=== PATIENT | female | born 2005 | race Caucasian/White ===

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

== ENCOUNTER → 2024-12-15 09:52 | Outpatient (BNVA) | payer BC, MEDICAID, SELFPAY | PROVIDERS: PCP Family Medicine; Visit Provider Nurse Practitioner Women's Health | DX: N91.2 Amenorrhea, unspecified (principal) | CPT/HCPCS: 81025 ==

== ENCOUNTER → 2024-12-20 10:27 | Outpatient (BNVA) | payer BC, MEDICAID, SELFPAY | PROVIDERS: PCP Family Medicine; Visit Provider Nurse Practitioner Women's Health | DX: N91.2 Amenorrhea, unspecified (principal) | CPT/HCPCS: 76801 ==

== ENCOUNTER → 2025-01-04 08:13 | Outpatient (BNVA) | payer BC, MEDICAID, SELFPAY | PROVIDERS: PCP Family Medicine; Visit Provider Nurse Practitioner Women's Health | DX: Z34.91 Encounter for supervision of normal pregnancy, unspecified, first trimester (principal) | CPT/HCPCS: 80307; 84315; 85025; 86592; 86762; 86803; 86850; 86900; 87086; 87340; 87806 ==

== ENCOUNTER → 2025-01-22 13:18 | Outpatient (BNVA) | payer MEDICAID, SELFPAY | PROVIDERS: PCP Family Medicine; Visit Provider Obstetrics & Gynecology | DX: Z34.80 Encounter for supervision of other normal pregnancy, unspecified trimester (principal); Z34.90 Encounter for supervision of normal pregnancy, unspecified, unspecified trimester | CPT/HCPCS: 84315; 87491; 87591; 87624; 87661 ==

== ENCOUNTER → 2025-02-15 08:47 | Outpatient (BNVA) | payer BC, MEDICAID, SELFPAY | PROVIDERS: PCP Family Medicine; Visit Provider Nurse Practitioner Women's Health | DX: Z34.80 Encounter for supervision of other normal pregnancy, unspecified trimester (principal); O28.5 Abnormal chromosomal and genetic finding on antenatal screening of mother | CPT/HCPCS: 82105; 84315 ==

== ENCOUNTER → 2025-03-19 08:35 | Outpatient (BNVA) | payer BC, MEDICAID, SELFPAY | PROVIDERS: PCP Family Medicine; Visit Provider Nurse Practitioner Women's Health | DX: O28.5 Abnormal chromosomal and genetic finding on antenatal screening of mother (principal) | CPT/HCPCS: 84315 ==

== ENCOUNTER → 2025-04-11 12:56 | Outpatient (BNVA) | payer BC, MEDICAID, SELFPAY | PROVIDERS: PCP Family Medicine; Visit Provider Nurse Practitioner Women's Health | DX: Z34.80 Encounter for supervision of other normal pregnancy, unspecified trimester (principal) | CPT/HCPCS: 82950; 84315 ==

== ENCOUNTER → 2025-05-11 13:51 | Outpatient (BNVA) | payer BC, MEDICAID, SELFPAY | PROVIDERS: PCP Family Medicine; Visit Provider Nurse Practitioner Women's Health | DX: O28.5 Abnormal chromosomal and genetic finding on antenatal screening of mother (principal); O16.3 Unspecified maternal hypertension, third trimester | CPT/HCPCS: 84315; 85025 ==

== ENCOUNTER → 2025-05-25 14:08 | Outpatient (BNVA) | payer BC, MEDICAID, SELFPAY | PROVIDERS: PCP Family Medicine; Visit Provider Nurse Practitioner Women's Health | DX: Z34.80 Encounter for supervision of other normal pregnancy, unspecified trimester (principal) | CPT/HCPCS: 84315 ==

== ENCOUNTER → 2025-06-08 13:02 | Outpatient (BNVA) | payer BC, MEDICAID, SELFPAY | PROVIDERS: PCP Family Medicine; Visit Provider Nurse Practitioner Women's Health | DX: O16.3 Unspecified maternal hypertension, third trimester (principal) | CPT/HCPCS: 84315 ==

== ENCOUNTER → 2025-06-22 13:02 | Outpatient (BNVA) | payer BC, MEDICAID, SELFPAY | PROVIDERS: PCP Family Medicine; Visit Provider Obstetrics & Gynecology | DX: Z34.80 Encounter for supervision of other normal pregnancy, unspecified trimester (principal) | CPT/HCPCS: 84315 ==

== ENCOUNTER 2025-06-30 20:54 | Outpatient (CLI) | payer BC, MEDICAID, SELFPAY ==
[2025-06-30 21:04] VITALS: BP 131/74; PULSE 88
[2025-06-30 21:23] VITALS: BP 122/73; PULSE 86
[2025-06-30 21:38] VITALS: BP 120/72; PULSE 81
[2025-06-30 21:39] VITALS: RESP 18
[2025-06-30 21:45] VITALS: BP 120/72; PULSE 86; O2SAT 98
== END 2025-06-30 22:00 | disposition home or self-care (01) ==
LOC: OPOB 20:56 → OBGYN 20:56
PROVIDERS: PCP Family Medicine; Visit Provider Obstetrics & Gynecology
DX: O13.9 Gestational [pregnancy-induced] hypertension without significant proteinuria, unspecified trimester (principal); Z3A.00 Weeks of gestation of pregnancy not specified
CPT/HCPCS: 59025; 99211

== ENCOUNTER → 2025-07-06 13:43 | Outpatient (BNVA) | payer BC, MEDICAID, SELFPAY | PROVIDERS: PCP Family Medicine; Visit Provider Obstetrics & Gynecology | DX: Z34.03 Encounter for supervision of normal first pregnancy, third trimester (principal) | CPT/HCPCS: 84315; 87081 ==

== ENCOUNTER → 2025-07-13 08:19 | Outpatient (BNVA) | payer BC, MEDICAID, SELFPAY | PROVIDERS: PCP Family Medicine; Visit Provider Nurse Practitioner Women's Health | DX: Z3A.37 37 weeks gestation of pregnancy (principal) | CPT/HCPCS: 84315 ==

== ENCOUNTER → 2025-07-19 08:50 | Outpatient (BNVA) | payer BC, MEDICAID, SELFPAY | PROVIDERS: PCP Family Medicine; Visit Provider Nurse Practitioner Women's Health | DX: Z34.80 Encounter for supervision of other normal pregnancy, unspecified trimester (principal) | CPT/HCPCS: 84315 ==

== ENCOUNTER → 2025-07-27 11:01 | Outpatient (BNVA) | payer BC, MEDICAID, SELFPAY | PROVIDERS: PCP Family Medicine; Visit Provider Obstetrics & Gynecology | DX: Z34.03 Encounter for supervision of normal first pregnancy, third trimester (principal) | CPT/HCPCS: 84315 ==

== ENCOUNTER → 2025-08-02 08:10 | Outpatient (BNVA) | payer BC, MEDICAID, SELFPAY | PROVIDERS: PCP Family Medicine; Visit Provider Obstetrics & Gynecology | DX: Z34.80 Encounter for supervision of other normal pregnancy, unspecified trimester (principal) | CPT/HCPCS: 84315 ==

== ENCOUNTER 2025-08-04 18:59 | Inpatient (IN) | payer BC, MEDICAID, SELFPAY ==
--- OUTSIDE RECORDS SUMMARY | 2019-12-26 09:41 | XMS_ITS | Continuity of Care Document ---
Author Organization [facility] Address [address] [address] Phone Care Team Providers Care Ag Service Manager Name Role Phone Monica Lucas DO Unavailable [...] on Encounter [facility], [address], [place], [id number], tel:[phone] [facility] No Information Tatimier Ruth Annma. [address], [place], [id number], [place]. tel:[phone] [facility], [address], [place], [id number], tel:[phone] [facility] HR Tremor, unspecified Ciesemier Gemma. [address], [place], [id number], . tel:[phone] Referring Provider: Monica Lucas, [address] [place], [address] . tel:[phone] OFFICE/OUTPAT IENT VISIT, NEW [facility], [address], [place], [place], [id number], tel:[phone] [facility] Establish Care (chief complaint)C omplaints of Tremors (chief complaint)C omplaints of Anxiety (chief complaint) Tremor Shayy Anderson. [address], [place], [address], [place]. tel:[phone] Referring Provider: Monica Lucas, [address] [place], [address] . tel:[phone] Family History Family Member Type Diagnosis Age At Onset No Information Payers Payer name Insurance type Covered alliance party ID Quin obrien(s) [facility] [id number] Social History Type Description Quantity Date Captured [...] their last blood work was completed in [facility] for several years. Patient states urinary and GI systems are working with no complaints. Patient is not due for age related diagnostic testing, such as a mammogram/colonoscopy. Pt complains of right hand tremors that started about 4 years ago but has gotten worse over the years. Pt states that she lives in [place] and does have some anxiety. Pt states [...]
[2025-08-04] VITALS (7 sets, daily range): BP systolic 113–147; BP diastolic 75–89; PULSE 86–112; BMI 37.4
[2025-08-04 19:58] LABS: Hematocrit 34.2 % (36-47); Hemoglobin 10.80 g/dL (11.27-16.99); Mean Corpuscular HGB Conc 31.6 g/dL (30-55); Mean Corpuscular Hemoglobin 26.2 pg (27-33); Mean Corpuscular Volume 83.0 fl (85-98); Nucleated Red Blood Cells % 0 %; Platelet Count 377 10^3/cmm (157-399); Red Blood Count 4.12 10^6/uL (3.85-5.65); White Blood Count 15.74 10^3/uL (3.29-11.43)
--- NOTE | 2025-08-04 20:30 | PM.OBGYHP ---
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 Illness Vanessa Arce is a 20 year old female A1 EDC August 01, 2025 At 40 w 3 d No complications No c/o + active movements Admitted for induction of labor Present Details : 2 Para: 0 Labs Rubella: Immune RPR: Negative GBS: Negative Medications/Allergies Home Medications ?Medication ?Instructions ?Recorded ?Confirmed ?Last Taken ?Type docosahexaenoic acid 200 mg 200 mg PO DAILY 12/15/24 08/02/25 Unknown History capsule ( DHA) Allergies Allergy/AdvReac Type Severity Reaction Status Date / Time No Known Allergies Allergy Verified 08/02/25 07:42 PFS 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 PFSH: Medical History (Updated 08/02/25 @ 11:27 by Steve Gallardo MD) No pertinent past medical history neghx:htn,dm,thyroid,dvt/pe PCP: Tammie Payne [place] Surgical History History of tonsillectomy (~2008) Hx laparoscopic cholecystectomy (~10/2020) Family History Mother Hyperlipidemia Thyroid disease Diabetes mellitus type 1 Grandmother Hyperlipidemia Hypertension Thyroid disease Grandfather Hypertension Father Hypertension Other Diabetes Denies family history of Colon cancer Ovarian cancer Prostate cancer Heart disease Breast cancer Anesthesia complication Bleeding disorder Uterine cancer Stroke Social History Smoking and tobacco/nicotine status: former use of tobacco/nicotine History History History 2 Term 0 0 Miscarriages/Ectopic 1 Living Children 0 Care VALARIE Calculator Estimated Delivery Date Method Current WG Current Estimate 08/01/25 Ultrasound #1 40w 5d Other Estimates 07/20/25 LMP (Certain) 42w 3d Specific Issues/Plans abnormal NIPT--- referred to [facility] Insufficient cervical cells on Pap smear with negative HPV--- needs Pap Vitals/I&O/Wt Last Vital Signs Temp 98.4 F 08/06/25 02:12 Pulse 93 08/06/25 03:59 Resp 16 08/06/25 02:12 BP 116/57 08/06/25 03:59 Pulse Ox 99 08/05/25 15:40 O2 Del Method Non-Rebreather 08/05/25 23:39 O2 Flow Rate 0 08/06/25 00:16 08/05/25 08/05/25 08/06/25 14:59 22:59 06:59 Intake Total 21.40 / 21.40 1045.934 / 1067.334 975.266 / 2042.600 Output Total 1000 / 1000 Balance 21.40 / 21.40 45.934 / 67.334 975.266 / 1042.600 Weight last 48 hrs Weight 232 lb Physical Exam Narrative: Weight 231 lbs, 5?6? VS normal General comfortable, awake, alert Lungs: clear Cor: RRR Abd: NT FH 38 cm, cephalic Cervix: closed / long / high / posterior Ext normal External monitor: heart tracing good variability, + accelerations Urinary Catheter Management: Villatoro: Cath Placed During This Visit: yes Urinary Catheter Date of Insertion: 08/05/25 Urinary Catheter Time of Insertion: 16:00 Data 08/04/25 19:33 Results Labs OB ([facility]): Blood Type O Positive 08/04/25 Antibody Screen Negative 08/04/25 Hct, (36-47) 34.2 % L 08/04/25 Hgb, (11.27-16.99) 10.80 g/dL L 08/04/25 Rho(D) Type Rh positive 08/04/25 Plt Count, (157-399) 377 10^3/cmm 08/04/25 Hep Bs Antigen, (Nonreactive) Non-reactive 01/04/25 Hepatitis C Antibody, (Nonreactive) Non-reactive 01/04/25 Rubella IgG Antibody, (0.0-10.0) 206.2 IU/mL H 01/04/25 RPR, (Nonreactive) Nonreactive 01/04/25 HIV 1&2 Ab & HIV 1 Ag, (Non-Reactiv) Non-reactive 01/04/25 Glucose 1 Hr 50 gm, (85-140) 129 mg/dL 04/11/25 HCG, Qual, (Negative) Positive H 12/15/24 Urine Opiates Screen, (Negative) Negative ng/mL 01/04/25 Ur Barbiturates Screen, (Negative) Negative ng/mL 01/04/25 Ur Phencyclidine Scrn, (Negative) Negative ng/mL 01/04/25 Ur Amphetamines Screen, (Negative) Negative ng/mL 01/04/25 U Benzodiazepines Scrn, (Negative) Negative ng/mL 01/04/25 Urine Cocaine Screen, (Negative) Negative ng/mL 01/04/25 U Marijuana (THC) Screen, (Negative) Negative ng/mL 01/04/25 Micro Urine Specimen 01/04/25 Pap Smear Interpret See note 01/22/25 A&P Assessment and plan 1. Supervision of other normal : 40 w 3 d Admitted for induction of labor Fetus reassuring Plan labor management PDMP PDMP Reviewed: Not Reviewed Attestations Medical Necessity Statement*: patient at 40 w 3 d, admitted for induction of labor Coding Level of Care Code Acute Code for Chg Fwd Diagnoses Supervision of other normal Z34.80
[2025-08-05] VITALS (73 sets, daily range): BP systolic 82–135; BP diastolic 50–83; PULSE 80–134; RESP 16–18; TEMP 36.3–37.2; O2SAT 98–100
--- NOTE | 2025-08-05 00:45 | P.PN_ITS ---
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: Interval history: fetus reassuring patient received cytotec 25 ug intravaginal x one cervix: 2 cm / 50 / -3 having regular UCs on external monitor Labor: Station: -2 Amniotic Membrane Status: Intact Monitor Mode: Internal (IUPC) Contraction Pattern: Regular Uterine Tone Measurement: 5 Vitals/I&O/Wt Last Vital Signs Temp 98.4 F 08/06/25 02:12 Pulse 96 08/06/25 04:15 Resp 16 08/06/25 02:12 BP 111/56 08/06/25 04:15 Pulse Ox 99 08/05/25 15:40 O2 Del Method Non-Rebreather 08/05/25 23:39 O2 Flow Rate 0 08/06/25 00:16 08/05/25 08/05/25 08/06/25 14:59 22:59 06:59 Intake Total 21.40 / 21.40 1045.934 / 1067.334 975.266 / 2042.600 Output Total 1000 / 1000 Balance 21.40 / 21.40 45.934 / 67.334 975.266 / 1042.600 Weight last 48 hrs Weight 232 lb Physical Exam 2 Urinary Catheter Management: Villatoro: Cath Placed During This Visit: yes Urinary Catheter Date of Insertion: 08/05/25 Urinary Catheter Time of Insertion: 16:00 Data 08/04/25 19:33 A&P Assessment and plan 1. Supervision of other normal : PDMP PDMP Reviewed: Not Reviewed Attestations 2 Medical Necessity Statement*: patient at 40 w 3 d, admitted for induction of labor Coding Level of Care Code Acute Code for Chg Fwd Diagnoses Supervision of other normal Z34.80
[2025-08-05] MEDS: oxytocin 30 UNIT/500 ML BAG IV (09:31)
[2025-08-05] MEDS: fentaNYL 50 mcg/mL INJ 2mL IVP ×3 (09:37→14:36)
--- NOTE | 2025-08-05 12:10 | ANES.PREANE2 ---
Pre-Anesthetic Assessment Height/Weight: Height 1.68 m Weight 105.233 kg Pulse Resp BP O2 Del Method 84 18 118/60 Room Air 08/05/25 04:22 08/05/25 09:37 08/05/25 04:22 08/04/25 19:52 Epidural Familial anesthetic complications: None Was Beta Adryan taken within 24 hours: N/A Was Clonidine taken within 24 hours: N/A Last intake: 08/05 breakfast Social No alcohol and No tobacco Exam alert, oriented x 3, clear to auscultation bilaterally and regular rate & rhythm Airway Submandibular: within normal limits Cervical ROM: within normal limits Mallampati: Class III Dentition: chipped (and missing) and full History/ROS No significant history except as noted and No significant complaints Pulmonary None reported CV/HEM Hypertension (Gestational) None reported Hepatic None reported GI Gastroesophageal Reflux Disease (Gestational) Metabolic None reported Musc/skel None reported Neuropsych None reported Anesthetic Plan ASA status: 2 Anesthesia: Anesthesia Evaluation, General and Regional (specify below) (Epidural) Risk of > 500 ml blood loss (7ml/kg in children): Yes, adequate IV access and fluids planned Medications/Allergies Home Medications ?Medication ?Instructions ?Recorded ?Confirmed ?Last Taken ?Type docosahexaenoic acid 200 mg 200 mg PO DAILY 12/15/24 08/02/25 Unknown History capsule ( DHA) Allergies Allergy/AdvReac Type Severity Reaction Status Date / Time No Known Allergies Allergy Verified 08/02/25 07:42 Current Medications Generic Name Dose Route Start Last Admin Trade Name Freq PRN Reason Stop Dose Admin Fentanyl 25 - 100 mcg 08/05/25 09:33 08/05/25 09:37 Fentanyl 50 Mcg/Ml Inj 2ml IVP 25 mcg Q1H PRN Administration SEVERE PAIN Dextrose/Lactated Ringer's 1,000 mls @ 125 mls/hr 08/04/25 20:00 08/05/25 09:08 Dextrose 5%-Lactated Ringers IV 125 mls/hr .Q8H RUSSELL Administration Oxytocin 30 unit in 500 mls @ 1 mls/hr 08/05/25 07:30 08/05/25 10:10 Pitocin IV 2 milliunit/min .Q24H RUSSELL 2 mls/hr Protocol Titration 1 MILLIUNIT/MIN Misoprostol 25 mcg 08/04/25 20:06 08/04/25 20:43 Misoprostol 100 Mcg Tablet VAGINAL 25 mcg Q4H PRN Administration LABOR INDUCTION PFSH Anesthesia Medical History (Updated 08/02/25 @ 11:27 by Steve Gallardo MD) No pertinent past medical history neghx:htn,dm,thyroid,dvt/pe PCP: Tammie Payne [place] Surgical History History of tonsillectomy (~2008) Hx laparoscopic cholecystectomy (~10/2020) Family History Mother Hyperlipidemia Thyroid disease Diabetes mellitus type 1 Grandmother Hyperlipidemia Hypertension Thyroid disease Grandfather Hypertension Father Hypertension Other Diabetes Denies family history of Colon cancer Ovarian cancer Prostate cancer Heart disease Breast cancer Anesthesia complication Bleeding disorder Uterine cancer Stroke Social History Smoking and tobacco/nicotine status: former use of tobacco/nicotine Female Reproductive History : 2 Data Anesthesia 08/04/25 19:33 Short CBC 08/04/25 Range/Units 19:33 WBC 15.74 H (3.29-11.43) 10^3/uL Hgb 10.80 L (11.27-16.99) g/dL Hct 34.2 L (36-47) % MCV 83.0 L (85-98) fl Plt Count 377 (157-399) 10^3/cmm Neut % (Auto) 77.3 % Neut # (Auto) 12.16 H (1.8-7.7) 10^3/uL Blood Bank 08/04/25 19:33 Blood Type O Positive Rho(D) Type Rh positive Antibody Screen Negative
--- NOTE | 2025-08-05 15:29 | P.ANES_ITS ---
Anesthesia Procedures Procedure/Date: 08/05/25 Epidural: Time Out Performed: Yes Consents Signed: Procedure Consent and NPO Consent Consent: requested by attending/covering physician, from patient, risks and benefits reviewed and patient agrees to proceed Lumbar Level: L3-L4 Epidural position: sitting Epidural procedure: sterile prep of area (betadine), 1% lidocaine to numb the area (3 mLs), neg for paresthesia, test dose given, 1.5% xylocaine 1:200k epi (3 mLs/ 2 mLs), placed PCEA, no systemic response, sterile dressing applied, L.U.D. no apparent complications and 0.2% Ropiavacaine @ mls/hr (13) Additional Comments: YAHIR 6cm, catheter threaded to 12cm. Negative aspiration for blood and CSF. P atient educated on ACCOUNT SERVICES REPRESENTATIVE button. Patient tolerated well.
--- NOTE | 2025-08-05 18:45 | PM.OBGYPN ---
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: Interval history: Cervix: 4 / 75 / -2 AROM, 2+ meconium IUPC placed Labor: Station: -2 Amniotic Membrane Status: Intact Monitor Mode: Internal (IUPC) Contraction Pattern: Regular Uterine Tone Measurement: 5 Vitals/I&O/Wt Last Vital Signs Temp 98.4 F 08/06/25 02:12 Pulse 96 08/06/25 04:15 Resp 16 08/06/25 02:12 BP 111/56 08/06/25 04:15 Pulse Ox 99 08/05/25 15:40 O2 Del Method Non-Rebreather 08/05/25 23:39 O2 Flow Rate 0 08/06/25 00:16 08/05/25 08/05/25 08/06/25 14:59 22:59 06:59 Intake Total 21.40 / 21.40 1045.934 / 1067.334 975.266 / 2042.600 Output Total 1000 / 1000 Balance 21.40 / 21.40 45.934 / 67.334 975.266 / 1042.600 Weight last 48 hrs Weight 232 lb Physical Exam Urinary Catheter Management: Villatoro: Cath Placed During This Visit: yes Urinary Catheter Date of Insertion: 08/05/25 Urinary Catheter Time of Insertion: 16:00 Data 08/04/25 19:33 A&P Assessment and plan 1. Supervision of other normal : PDMP PDMP Reviewed: Not Reviewed Attestations Medical Necessity Statement*: patient at 40 w 3 d, admitted for induction of labor Coding Level of Care Code Acute Code for Chg Fwd Diagnoses Supervision of other normal Z34.80
[2025-08-05] MEDS: ROPivacaine premix 200 MG/100 ML PREMIX 10 MG EPIDURAL (22:09)
[2025-08-06] VITALS (153 sets, daily range): BP systolic 92–158; BP diastolic 48–94; PULSE 86–129; RESP 16–18; TEMP 36.7–37.1; O2SAT 93–99
[2025-08-06] MEDS: ROPivacaine premix 200 MG/100 ML PREMIX 10 MG EPIDURAL ×2 (05:03→12:09)
--- OUTSIDE RECORDS SUMMARY | 2025-08-06 05:06 | XMS_ITS | Clinical Summary ---
Author Organization [facility] Address [address] [place] [phone] Phone Care Team Providers Care Agricultural Systems Specialist Name Role Phone Unavailable Primary Care Provider Unavailabl e Social History Tobacco Use Types Packs/Day Years Used Date Smoking Tobacco: Never Assessed Comments Unknown Sex and Gender Information Value Date Recorded Sex Assigned at Not on file Legal Sex Female 12:51 PM CDT Gender Identity Not on file Sexual Orientation Not on file Plan of Treatment Health Maintenance Due Date Last Done Comments MMR Vaccines (1 of 1 - Stand ronal series) 01/31/2004 DTaP,Tdap,and Td Vaccines (1 - Tdap) 2010 Varicella Vaccines (1 of 2 - 13+ 2-dose series) 01/31/2016 HPV Vaccines (1 - 3-dose series) 2018 Meningococcal B Vaccine (1 o f 2 - Standard) 2019 Depression Screening 2021 Social Drivers of Health (SDoH) 2021 Hepatitis B Vaccines (1 of 3 - 19+ 3-dose series) 2022 Pap Smear 01/31/2024 COVID-19 Vaccine (1 - 2023-2 5 season) 2025 Influenza Vaccine (#1) 2025 Pneumococcal Vaccine: 50+ Ye ars (1 of 1 - PCV) 2053 Zoster Vaccines (1 of 2) 2053 RSV Vaccines (1 - 1-dose 75+ series) 2078 HIB Vaccines Aged Out No longer eligi ble based on patient's age to complete this topic Hepatitis A Vaccines Aged Out No long er eligible based on patient's age to complete this topic IPV Vaccines Aged Out No longer eligi ble based on patient's age to complete this topic Meningococcal Vaccine Aged Out No tony myke eligible based on patient's age to complete this topic Pneumococcal Vaccine Aged Out No long er eligible based on patient's age to complete this topic Rotavirus Vaccines Aged Out No longer eligible based on patient's age to complete this topic
--- OUTSIDE RECORDS SUMMARY | 2025-08-06 05:07 | XMS_ITS | Encounter Summary ---
Author Organization [facility] Address [address] [place] [phone] Phone Care Team Providers Care Costume Designer Name Role Phone Unavailable Primary Care Provider Unavailabl e Reason for Visit * Reason Onset Date Comments new mom 06/18/2022 Encounter Details Date Type Department Care Team (Late st Contact Info) Description 06/18/2022 Telephone [facility] [address] [address] Matthew Azul MD [address] [place] [address] new mom Social History Tobacco Use Types Packs/Day Years Used Date Smoking Tobacco: Never Assessed Comments Unknown Sex and Gender Information Value Date Recorded Sex Assigned at Not on file Legal Sex Female 12:51 PM CDT Gender Identity Not on file Sexual Orientation Not on file documented as of this encounter Miscellaneous Notes * Telephone Encounter - Roula Albert MA - 06/19/2022 2:27 PM CDT Scheduled for a nurse visit on 07/09 * Telephone Encounter - Roula Albert MA - 06/19/2022 2:23 PM CDT LMP: 05/20/22 #P: P: 1 CONFIRMED: Yes, Home Test PREVIOUS OR LABOR COMPLICATIONS: None PREVIOUS : No SEEN OTHER OB: No (Need records before scheduling if seen somewhere else for provider approval) EVER SEEN PH NUTRITION THERAPIST: No Provider preference ? [facility] location ? [place] DELIVER AT PH: Yes INS: [employer] Medicaid (Make sure they are aware we do not accept homestate. If patient has homestate insurance, call to switch plan for and schedule appointment after new plan information is received.) (If no insurance, patient can call to fill out medicaid application form. Or we can send telephone encounter to Stella Lei for assistance.) SURROGACY: No ADOPTION: No Arrive 15 min prior to appointment , bring insurance card, drivers license and be prepared to leavea urine ! * Telephone Encounter - Shay Leger - 06/18/2022 1:01 PM CDT LMP: 05/20/22 1st [employer] Siri Requet * Telephone Encounter - Shay Leger - 06/18/2022 12:59 PM CDT LM for patient to call back the office * Telephone Encounter - Patricia Michael - 06/18/2022 12:51 PM CDT New mom, last period May 20, this will be first child documented in this encounter Plan of Treatment Not on file documented as of this encounter Visit Diagnoses Not on filedocumented in this encounter
[2025-08-06] MEDS: penicillin g potassium 5,000,000 UNIT in sodium chloride 0.9% (plus) 100 ML 100 UNIT IV (09:56)
--- NOTE | 2025-08-06 13:05 | PM.OBGYPN ---
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 Subjective: Interval history: heart tracing on FSE Decreased variability + late decelerations UCs inadequate Pitocin was turned off due to concerning heart tracing Cervix: 6 cm / -2 Will proceed with for delivery Procedure and risks explained to patient Risks include, but not limited to, infection, bleeding, injury to internal organs, anesthesia, blood transfusions Patient understands and wants to proceed Labor: Station: -2 Amniotic Membrane Status: Intact Monitor Mode: Internal (IUPC) Contraction Pattern: Irregular Uterine Tone Measurement: 0 Vitals/I&O/Wt Last Vital Signs Temp 98.1 F 08/06/25 19:26 Pulse 99 08/06/25 22:41 Resp 16 08/06/25 15:55 BP 137/84 08/06/25 21:58 Pulse Ox 96 08/06/25 22:41 O2 Del Method Room Air 08/06/25 15:55 O2 Flow Rate 0 08/06/25 00:16 08/06/25 08/06/25 08/07/25 14:59 22:59 06:59 Intake Total 153.817 / 153.817 800 / 953.817 Output Total 3650 / 3650 Balance 153.817 / 153.817 -2850 / -2696.183 Physical Exam Urinary Catheter Management: Villatoro: Cath Placed During This Visit: yes Reason for Continuing Indwelling Catheter: Required Immobilization for Trauma or Surgery or Anesthesia Urinary Catheter Date of Insertion: 08/05/25 Urinary Catheter Time of Insertion: 16:00 Data 08/04/25 19:33 A&P Assessment and plan 1. Supervision of other normal : PDMP PDMP Reviewed: Not Reviewed Attestations Medical Necessity Statement*: patient at 40 w 3 d, admitted for induction of labor Coding Level of Care Code Acute Code for Chg Fwd Diagnoses Supervision of other normal Z34.80
[2025-08-06] MEDS: ceFAZolin 2,000 mg SDV 2000 MG IVP (14:10)
[2025-08-06] MEDS: metoclopramide 5 mg/mL SDV 2 mL 10 MG IVP (14:11)
--- NOTE | 2025-08-06 14:50 | PM.OP ---
Operative Report Date of procedure: August 06, 2025 Pre-op diagnosis: 40 w 3 d induction of labor 2+ meconium stained amniotic fluid cervix at 6 cm heart tracing with decreased variability and repetitive late decelerations Post-op diagnosis: same Post-op findings: normal uterus, tubes, and ovaries fetus with body cord Procedure done: primary low-transverse Implants: none Specimens removed/disposition: placenta and cord, discarded cord gases and blood, sent to lab Surgeon: iMlad Raphael MD Anesthesia: Epidural Estimated blood loss (mL): 500 Complications: none Findings: see above Condition: stable Disposition: floor Brief History: 20 y.o. at 40 w 5 d admitted for induction of labor Cx at 6 cm heart tracing with decreased variability and repetitive late decelerations Procedure: The patient was taken to the operating room and placed supine in the left lateral tilt position. Epidural anesthesia and a tejeda catheter were already in place. Time-out verification was carried out. The abdomen was prepped and draped in the usual sterile fashion. A Pfannenstiel incision was made and carried down through skin and subcutaneous tissue and fascia. The fascial incision was extended laterally with Parsons scissors. The fascia was from the underlying rectus muscles. The rectus muscles were split in the midline. The peritoneum was entered bluntly avoiding underlying organs. A bladder flap was created. An Thom-O retractor was placed. A low-transverse uterine incision was made and extended laterally and bluntly avoiding the uterine vessels. The baby was delivered in cephalic presentation atraumatically. A tight body cord was noted. The baby was suctioned, the cord was clamped and cut and the baby was handed to pediatric staff. A segment of cord was obtained for cord gas, cord blood was obtained. The placenta was manually removed intact. The uterine cavity was bluntly curetted with wet laps. The uterine incision was then closed with a continuous interlocking stitch of O-chromic. Adequate hemostasis was seen. Inspection of the uterine incision again showed good hemostasis. The fascia was then closed with a continuous stitch of O-Vicryl. The subcutaneous tissue was irrigated and inspected for hemostasis. The skin was then closed with Insorb abhijeet. Postoperative condition: stable EBL: 500 cc Complications: none Sponge and instruments counts correct x two
[2025-08-06] MEDS: HYDROcodone-acetaminophen 5-325 mg Tablet PO ×2 (16:09→22:06)
[2025-08-06] MEDS: ferrous sulfate EC 325 mg Tablet PO (20:18)
--- NOTE | 2025-08-06 23:13 | PC.NURSE ---
At 2107 the patient reported to Angi Boyer Rn that her left leg was bothering her, Rn assessed and did not note any abnormalities. At 2201 the patient reported to Angi Boyer Rn that her left leg had began to hurt and was now at a pain of 8/10. Patient was able to barely move leg off the bed and reported it felt as if the hip was out of place. Medication was given and patient reported that her hip/ leg was feeling better pain 2/10.
[2025-08-07 03:43] VITALS: TEMP 36.4
[2025-08-07 03:44] VITALS: BP 125/74; PULSE 96; RESP 16; TEMP 36.8; O2SAT 97
[2025-08-07 03:54] LABS: Hematocrit 29.1 % (36-47); Hemoglobin 8.70 g/dL (11.27-16.99); Mean Corpuscular HGB Conc 29.9 g/dL (30-55); Mean Corpuscular Hemoglobin 26.4 pg (27-33); Mean Corpuscular Volume 88.4 fl (85-98); Platelet Count 297 10^3/cmm (157-399); Red Blood Count 3.29 10^6/uL (3.85-5.65); White Blood Count 20.07 10^3/uL (3.29-11.43)
[2025-08-07] MEDS: PRENATAL VIT NO.130/IRON/FOLIC 1 EACH TABLET PO (08:18)
[2025-08-07] MEDS: HYDROcodone-acetaminophen 5-325 mg Tablet PO ×2 (08:18→19:41)
[2025-08-07] MEDS: ferrous sulfate EC 325 mg Tablet PO ×2 (08:18→20:41)
--- NOTE | 2025-08-07 09:26 | ANE.PACU2 ---
Inpatient post-anesthesia follow up: Airway intact: Yes Vital signs: Temperature 98.5 F Pulse Rate 90 Respiratory Rate 16 Blood Pressure 117/59 Pulse Oximetry 97 Oxygen Delivery Me thod Room Air Oxygen Flow Rate 0 Fraction of Inspir ed Oxygen Hydration adequate: Yes Nausea and vomiting: No Pain level: 1 Mental status: Baseline Epidural Start/End: Epidural Start Date: 08/05/25 Epidural Start Time: 15:00 Epidural End Date: 08/06/25 Epidural End Time: 17:46
--- NOTE | 2025-08-07 09:35 | P.PN_ITS ---
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: Interval history: c/o mild incisional pain no bleeding, nausea, vomiting tolerating PO well no dizziness, weakness, palpitations, shortness of breath caring for infant without any difficulties Labor: Station: -2 Amniotic Membrane Status: Intact Monitor Mode: Internal (IUPC) Contraction Pattern: Irregular Uterine Tone Measurement: 0 Vitals/I&O/Wt Last Vital Signs Temp 98.5 F 08/08/25 04:40 Pulse 90 08/08/25 04:39 Resp 16 08/08/25 04:40 BP 117/59 08/08/25 04:39 Pulse Ox 97 08/07/25 03:44 O2 Del Method Room Air 08/07/25 03:44 O2 Flow Rate 0 08/06/25 00:16 08/07/25 08/08/25 08/08/25 22:59 06:59 14:59 Intake Total 1000 / 1000 Output Total 500 / 500 Balance 500 / 500 Physical Exam 2 Narrative: General comfortable, awake, alert VS afebrile, normal Lungs: clear Cor: RRR Abd: soft, nontender Wound clean and dry Ext: no edema postop Hgb 8.7 Urinary Catheter Management: Tejeda: Cath Placed During This Visit: yes, but has since been removed by the nurse Reason for Continuing Indwelling Catheter: Decision to DC Catheter Urinary Catheter Date of Insertion: 08/05/25 Urinary Catheter Time of Insertion: 16:00 Date Urinary Catheter Removed: 08/07/25 Time Urinary Catheter Discontinued: 13:00 Data 08/07/25 03:32 A&P Assessment and plan 1. S/P : POD #1 primary low-transverse doing well continue postop care remove tejeda ambulate 2. Anemia: Rx iron 1-2 tabs / day PDMP PDMP Reviewed: Not Reviewed Attestations 2 Medical Necessity Statement*: patient s/p , for postop care Coding Level of Care Code Acute Code for Chg Fwd Diagnoses S/P Z98.891 Anemia D64.9
[2025-08-07 09:45] VITALS: BP 113/55; PULSE 89
[2025-08-07 09:48] VITALS: TEMP 36.7
[2025-08-07 10:22] VITALS: BP 115/57; PULSE 88
[2025-08-07 20:43] VITALS: BP 125/71; PULSE 118
[2025-08-08 04:39] VITALS: BP 117/59; PULSE 90
[2025-08-08 04:40] VITALS: RESP 16; TEMP 36.9
[2025-08-08] MEDS: PRENATAL VIT NO.130/IRON/FOLIC 1 EACH TABLET PO (08:50)
[2025-08-08 11:46] VITALS: TEMP 35.9
[2025-08-08 11:47] VITALS: BP 117/54; PULSE 91
[2025-08-08 13:43] VITALS: BP 130/70; PULSE 103
[2025-08-08 13:52] VITALS: BP 130/70; PULSE 103; RESP 16; TEMP 36.6; O2SAT 99
--- NOTE | 2025-08-08 14:15 | P.PN_ITS ---
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 ASSISTANT PER DIEM Subjective 2 Subjective: Interval history: no c/o eating, voiding, ambulating well no pain, bleeding wants to go home without any difficulties Labor: Station: -2 Amniotic Membrane Status: Intact Monitor Mode: Internal (IUPC) Contraction Pattern: Irregular Uterine Tone Measurement: 0 Vitals/I&O/Wt Last Vital Signs Temp 97.9 F 08/08/25 13:52 Pulse 103 H 08/08/25 13:52 Resp 16 08/08/25 13:52 BP 130/70 08/08/25 13:52 Pulse Ox 99 08/08/25 13:52 O2 Del Method Room Air 08/07/25 03:44 O2 Flow Rate 0 08/06/25 00:16 Physical Exam 2 Narrative: General comfortable, awake, alert VS afebrile, normal Lungs: clear Cor: RRR Abd: soft, nontender Wound clean and dry Ext: no edema Urinary Catheter Management: Villatoro: Cath Placed During This Visit: yes, but has since been removed by the nurse Reason for Continuing Indwelling Catheter: Decision to DC Catheter Urinary Catheter Date of Insertion: 08/05/25 Urinary Catheter Time of Insertion: 16:00 Date Urinary Catheter Removed: 08/07/25 Time Urinary Catheter Discontinued: 13:00 Data 08/07/25 03:32 A&P Assessment and plan 1. S/P : POD #2 primary low-transverse doing well discharge home today instructions and precautions given no heavy lifting more than 15 lbs no intercourse x six weeks call/return if fever, chills, nausea, vomiting, headaches, abdominal pain, bleeding, inability to void, swelling, leg pain; feelings of depression or mood changes; wound redness, swelling, or discharge; chest pain; shortness of breath f/u in 1 week or PRN 2. Anemia: continue iron 1-2 tabs / day PDMP PDMP Reviewed: Last Reviewed 08/08/25 12:53 EDT by Milad Raphael MD Attestations 2 Medical Necessity Statement*: patient s/p , plan is to discharge to home today Coding Level of Care Code Acute Code for Chg Fwd Diagnoses S/P Z98.891 Anemia D64.9
--- NOTE | 2025-08-08 14:35 | PM.OBGYDC ---
Discharge Providers PRESS OPERATOR AUTOMATIC Date of Admission: 08/05/25 15:00 Date of Discharge: 08/08/25 Attending Provider at Admission: Milad Raphael MD Attending Provider at Discharge: Milad Raphael MD Consults: none Primary PRESS OPERATOR AUTOMATIC: Milad Raphael MD Primary Care Provider: Tammie Payne MD Diagnoses at Discharge Discharge Diagnosis 1. S/P : Details from hospital stay: 20 y.o. A1 at 40 w 3 d admitted for induction of labor cytotec and pitocin were given patient progressed to 6 cm, at which time heart tracing began to have decreased variability and repetitive late decelerations it was decided to proceed with for delivery primary low-transverse was done without any complications patient did well postoperatively and was discharged to home on the second postoperative day 2. Anemia: Reason for Visit Reason for Visit: induction of labor Brief History: 20 y.o. A1 at 40 w 3 d admitted for induction of labor Hospital Course Hospital Course 20 y.o. A1 at 40 w 3 d admitted for induction of labor cytotec and pitocin were given patient progressed to 6 cm, at which time heart tracing began to have decreased variability and repetitive late decelerations it was decided to proceed with for delivery primary low-transverse was done without any complications patient did well postoperatively and was discharged to home on the second postoperative day Information Peripartum Data: Infant Delivery Method: Laceration description: None Episiotomy description: None complications: none Physical Exam Narrative: General comfortable, awake, alert VS afebrile, normal Lungs: clear Cor: RRR Abd: soft, nontender Wound clean and dry Ext: no edema Urinary Catheter Management: Villatoro: Cath Placed During This Visit: yes, but has since been removed by the nurse Reason for Continuing Indwelling Catheter: Decision to DC Catheter Urinary Catheter Date of Insertion: 08/05/25 Urinary Catheter Time of Insertion: 16:00 Date Urinary Catheter Removed: 08/07/25 Time Urinary Catheter Discontinued: 13:00 History History History 2 Term 0 0 Miscarriages/Ectopic 1 Living Children 0 Discharge Data Studies Completed and Pending Laboratory Results WBC 20.07 10^3/uL (3.29-11.43) H 08/07/25 03:32 RBC 3.29 10^6/uL (3.85-5.65) L 08/07/25 03:32 Hgb 8.70 g/dL (11.27-16.99) L 08/07/25 03:32 Hct 29.1 % (36-47) L 08/07/25 03:32 MCV 88.4 fl (85-98) 08/07/25 03:32 MCH 26.4 pg (27-33) L 08/07/25 03:32 MCHC 29.9 g/dL (30-55) L 08/07/25 03:32 RDW 15.6 % (12.1-15.1) H 08/07/25 03:32 Plt Count 297 10^3/cmm (157-399) 08/07/25 03:32 MPV 9.9 fL (7.4-10.4) 08/07/25 03:32 Neut % (Auto) 77.3 % 08/04/25 19:33 Lymph % (Auto) 14.0 % 08/04/25 19:33 [place] % (Auto) 6.3 % 08/04/25 19:33 Eos % (Auto) 1.1 % 08/04/25 19:33 Baso % (Auto) 0.2 % 08/04/25 19:33 Neut # (Auto) 12.16 10^3/uL (1.8-7.7) H 08/04/25 19:33 Lymph # (Auto) 2.2 10^3/uL (0.8-4.8) 08/04/25 19:33 [place] # (Auto) 1.0 10^3/uL (0.2-0.9) H 08/04/25 19:33 Eos # (Auto) 0.2 10^3/uL (0.0-0.8) 08/04/25 19:33 Baso # (Auto) 0.0 10^3/uL (0.0-0.1) 08/04/25 19:33 Nucleated RBC % (auto) 0 % 08/04/25 19:33 Nucleated RBCs # 0.0 /100WBC 08/04/25 19:33 Blood Type O Positive 08/04/25 19:33 Rho(D) Type Rh positive 08/04/25 19:33 Antibody Screen Negative 08/04/25 19:33 Procedures Performed induction of labor primary low-transverse Vitals Last Vital Signs Temp 97.9 F 08/08/25 13:52 Pulse 103 H 08/08/25 13:52 Resp 16 08/08/25 13:52 BP 130/70 08/08/25 13:52 Pulse Ox 99 08/08/25 13:52 O2 Del Method Room Air 08/07/25 03:44 O2 Flow Rate 0 08/06/25 00:16 Results Labs [facility] ([facility]): Blood Type O Positive 08/04/25 Antibody Screen Negative 08/04/25 Hct, (36-47) 29.1 % L 08/07/25 Hgb, (11.27-16.99) 8.70 g/dL L 08/07/25 Rho(D) Type Rh positive 08/04/25 Plt Count, (157-399) 297 10^3/cmm 08/07/25 Hep Bs Antigen, (Nonreactive) Non-reactive 01/04/25 Hepatitis C Antibody, (Nonreactive) Non-reactive 01/04/25 Rubella IgG Antibody, (0.0-10.0) 206.2 IU/mL H 01/04/25 RPR, (Nonreactive) Nonreactive 01/04/25 HIV 1&2 Ab & HIV 1 Ag, (Non-Reactiv) Non-reactive 01/04/25 Glucose 1 Hr 50 gm, (85-140) 129 mg/dL 04/11/25 HCG, Qual, (Negative) Positive H 12/15/24 Urine Opiates Screen, (Negative) Negative ng/mL 01/04/25 Ur Barbiturates Screen, (Negative) Negative ng/mL 01/04/25 Ur Phencyclidine Scrn, (Negative) Negative ng/mL 01/04/25 Ur Amphetamines Screen, (Negative) Negative ng/mL 01/04/25 U Benzodiazepines Scrn, (Negative) Negative ng/mL 01/04/25 Urine Cocaine Screen, (Negative) Negative ng/mL 01/04/25 U Marijuana (THC) Screen, (Negative) Negative ng/mL 01/04/25 Micro Urine Specimen 01/04/25 Pap Smear Interpret See note 01/22/25 Discharge Plan Discharge Patient Disposition: Home Condition: Stable Prescriptions: New oxycodone-acetaminophen [Percocet] 5-325 mg tablet 1 tab PO Q8H PRN (Reason: pain) Qty: 20 0RF No Action norethindrone ac-eth estradiol [12/18 (21)] 1-20 mg-mcg tablet 1 tab PO DAILY Qty: 63 3RF Discharge Order = DC NOW: Discharge Order (Routine); Ordered 08/08/25 Ordered By: Milad Raphael Referrals: Milad Raphael MD [Physician, PRESS OPERATOR AUTOMATIC] - 08/30/25 9:15 am Discharge Diet: Usual diet Discharge Activity: Increase activity as tolerated Patient Instructions: Depression (DC), Opioid Safety (DC), Preeclampsia and Eclampsia After Delivery (GEN), Hemorrhage (DC), OB [facility], OB Discharge Report, OB Food/Drug Interaction Guide, Opioid Safety, OB Home Care, Patient Portal & Danielle Instructions, Abnormal Bleeding Discharge Attestations PRESS OPERATOR AUTOMATIC Time Spent in Discharge Care*: less than 30 min Coding Level of Care Code Acute Code for Chg Fwd Diagnoses S/P Z98.891 Anemia D64.9
[2025-08-08 14:52] LABS: High Risk PP Hemorrhage BBK Notified
== END 2025-08-08 13:53 | disposition home or self-care (01) | DRG 788 ==
LOC: OBGYN 21:25
PROVIDERS: Admitting Provider Obstetrics & Gynecology; PCP Family Medicine; Visit Provider Obstetrics & Gynecology
PROC: 10D00Z1 Extraction of Products of Conception, Low, Open Approach (ICD-10-PCS; CPT 59514; principal; 2025-08-06 14:30)
DX: O48.0 Post-term pregnancy (principal); Z3A.40 40 weeks gestation of pregnancy; O76 Abnormality in fetal heart rate and rhythm complicating labor and delivery; O77.0 Labor and delivery complicated by meconium in amniotic fluid; Z37.0 Single live birth; K21.9 Gastro-esophageal reflux disease without esophagitis; Z90.49 Acquired absence of other specified parts of digestive tract; O99.62 Diseases of the digestive system complicating childbirth; O90.81 Anemia of the puerperium; D64.9 Anemia, unspecified
CPT/HCPCS: 36415; 51702; 59409; 85025; 85027; 86850; 86900; 96374; 96376; G0378; J0690; J1885; J2274; J2540; J2550; J2590; J2765; J2795; J3010; J3490; J7030; J7040; J7120; J7121; J9999

== ENCOUNTER 2025-08-12 21:08 | Emergency (ER) | payer BC, MEDICAID, SELFPAY ==
--- OUTSIDE RECORDS SUMMARY | 2019-12-26 09:41 | XMS_ITS | Continuity of Care Document ---
Author Organization [facility] Address [address] [place] [address] Phone Care Team Providers Care Business Solutions Consultant Name Role Phone Monica Lucas DO Unavailable Unavailable Medications Medication Instructions Dosage Effective Dates (start - stop) Status Comments propranolol 10 mg tablet take 1 tablet by oral route every day 10 MG - Active Procedures Procedure Date COMPLETE CBC W/AUTO DIFF WBC COMPREHEN METABOLIC PANEL GLYCATED HEMOGLOBIN TEST LIPID PANEL ASSAY OF MAGNESIUM ASSAY OF FREE THYROXINE ASSAY THYROID STIM HORMONE VITAMIN B-12 ASSAY OF VITAMIN D ROUTINE VENIPUNCTURE OFFICE/OUTPATIENT VISIT, NEW Advance Directives Directive Yes / No Effective Date File Name No Information Encounters Encounter Description Practice Location Reason(s) For Visit Diagnoses Date Provider Providers Copied on Encounter [facility], [address] [place], [place], [id number], tel:[phone] [facility] No Information Tatimier Ruth Annma. [address], [place], [id number], [place]. tel:[phone] [facility], [address] [place] [place], [place], [id number], tel:[phone] [facility] [place] Tremor, unspecified Ciesemier Gemma. [address], [place], [id number], . tel:[phone] Referring Provider: Monica Lucas, [address] [place], [address] . tel:[phone] OFFICE/OUTPAT IENT VISIT, NEW [facility], [address], [place], [place], [id number], tel:[phone] [facility] Establish Care (chief complaint)C omplaints of Tremors (chief complaint)C omplaints of Anxiety (chief complaint) Tremor Shayy Anderson. [address], [place], [id number], [place]. tel:[phone] Referring Provider: Monica Lucas, [address] [place], [address] . tel:[phone] Family History Family Member Type Diagnosis Age At Onset No Information Payers Payer name Insurance type Covered constitution party ID Quin obrien(s) [facility] [id number] Social History Type Description Quantity Date Captured Comments Alcohol Use Details Unknown Caffeine Use Details Unknown Tobacco Use Status No Information Smoking Status No Information Sex Female Chief Complaint And Reason For Visit No Information Reason For Referral Reason For Referral No Information History Of Present Illness Encounter Date Complaint History Of Prese nt Illness Establish Care Patient presents today to establish care with Dr. Lucas. Patient was previously receiving care from Dr. Ribera. In office, patient will complete a medical request release form to fax to previous provider. Patient is currently not on any medications. Patient's past medical history, allergies, pharmacy of choice, and daily medications were reviewed and updated in chart. Patient verbalizes they are current on all vaccines but no written record was provided. Patient states their last blood work was completed in [facility] for several years. Patient states urinary and GI systems are working with no complaints. Patient is not due for age related diagnostic testing, such as a mammogram/colonoscopy. Pt complains of right hand tremors that started about 4 years ago but has gotten worse over the years. Pt states that she lives in [place] and does have some anxiety. Pt states that her and her parents may be moving after her sister graduates this year. Pt states she is getting some B,C and some D's. Pt states that she wants to be a [employer] when graduating. Pt does not want to go to college. Father states that he listens to pt talk about her tremor. States that he really hasn't seen the tremor. States that mother is a little concerned. At this time pt states that it is not stopping her from doing anything but worried about why it is doing it. Pt states that she did she for it and was suppose to get set up for Neurologist but nothing was followed through. Last visit with Mounika was 6 months ago. Patient voices no concerns to Dr. Lucas other than those mentioned above. Complaints of Tremors The sympto ms began 4 years ago and generally lasts 4 Years. The symptoms are reported as being moderate. The symptoms occur constantly. The location is Right Hand. Pt states tremors in right hand started 4 years ago. Denies headaches or injuries. Pt states that it is getting worse. Pt states that it doesn't stop her from doing anything. Pt states she can write it is just a little sloppy. Pt states that she thought she was suppose to set up with Neurologist but the doctors office prior to us did not follow through with setting up an appointment. Would like to discuss possibilities with provider. States that it is just annoying. Complaints of Anxiety Pt states that she does experience anxiety. Pt states she doesn't really know why. Pt states she use to be on a medication but could not remember the name of it. Pt states that it helped but she just stopped taking it. Pt would like to discuss this with provider as well. Functional Status Date Functional Assessmen t No Information Instructions Date Instruction Additional Infor daphne Likely an essential tremor-Pt will take medication as prescribed in the morning and increase water intake. Pt educated that medication may make tired at first. -Pt will RTC in 1 months or sooner if symptoms persist or worsen-Pt will be referred to possibly an MRI or Neurologist depending on symptoms and blood work-Pt will have full fasting labs with added magnesium, Phosphorus, ,BOB, ESR/CRP, RPR, Serum Ceruloplasmin and Thiamine. Scheduled for 12/19/19. Pt will be notified of lab results.-Pt and father agree to current plan of care. Discussed pros/cons of medication. Side fx and risks. Pt wishes to proceed. Related to Tremor Assessments Type Assessment Date No Information Patient Care Teams Name Effective Dates (start - stop) Status Members No Information
[2025-08-12 21:20] VITALS: BP 125/74; PULSE 102; RESP 18; TEMP 36.9; O2SAT 100; BMI 21.7
--- OUTSIDE RECORDS SUMMARY | 2025-08-12 21:22 | XMS_ITS | Clinical Summary ---
Author Organization [facility] Address [address] [place] [id number] Phone Care Team Providers Care Geriatric Nurse Assistant Name Role Phone Unavailable Primary Care Provider [...]
--- OUTSIDE RECORDS SUMMARY | 2025-08-12 21:22 | XMS_ITS | Encounter Summary ---
Author Organization [facility] Address [address] [place] [id number] Phone Care Team Providers Care Food Editor Name Role Phone Unavailable Primary Care Provider Unavailabl e Reason for Visit * Reason Onset Date Comments new mom 06/18/2022 Encounter Details Date Type Department Care Team (Late st Contact Info) Description 06/18/2022 Telephone [facility] [address] [id number] Matthew Azul MD [address] [place] [address] new mom Social History Tobacco [...] else for provider approval) EVER SEEN PH ABRASIVE COATING MACHINE OPERATOR: No Provider preference ? [facility] location ? [place] DELIVER AT PH: Yes INS: [facility] [...]
--- NOTE | 2025-08-12 22:34 | W.ED.ABDPA2 ---
HPI - Abdominal Pain General: Chief Complaint: Abdominal Pain Stated Complaint: LT side swollen/ warm to touch Time Seen by Provider: 08/12/25 21:59 Source: patient Mode of arrival: ambulatory Limitations: no limitations History of Present Illness: Patient is a 20-year-old female presents to ED today with complaints of pain to the left side of her incision. She states she underwent approximately a week ago by Dr. Raphael. She does state at some point while in the hospital she recalls lifting her left leg and hearing a pop to her left abdomen/pelvis and feels like she has had pain ever since. She is not complaining of significant vaginal bleeding and feels like this has slowly improved. She is not complaining of lightheadedness or dizziness. She states her pain is not present when she is not moving. She mainly feels the discomfort when she is getting up and down from lying and seated positions. MD elicited complaint: abdominal pain Pertinent past history: other (Recent section) Onset (ago): day(s) Pain Consistency: constant Severity: moderate Radiation: none Migration to: no migration Exacerbating factors: rest and other (lying still) Relieving factors: movement and other (positional changes) Associated Symptoms: Reports no associated symptoms and other (pain at L side of c section); Denies change in bowel habits, chills, dysuria, fever(s), nausea and vomiting Related Data Home Medications ?Medication ?Instructions ?Recorded ?Confirmed docosahexaenoic acid 200 mg 200 mg PO DAILY 12/15/24 08/08/25 capsule ( DHA) Previous Rx's ?Medication ?Instructions ?Recorded oxycodone-acetaminophen 5 mg-325 1 tab PO Q8H PRN pain #20 tabs 08/08/25 mg tablet (Percocet) Allergies Allergy/AdvReac Type Severity Reaction Status Date / Time No Known Allergies Allergy Verified 08/02/25 07:42 Review of Systems Const: Denies: fever(s), chills, body aches, fatigue or malaise Card: Denies: chest pain Resp: Denies: dyspnea GI: Reports: other (pain at L side of c section); Denies: nausea, vomiting or change in bowel habits : Denies: flank pain, difficulty voiding, dysuria, urinary frequency, urinary urgency or urinary hesitancy Musc: Denies: neck pain, back pain, extremity pain, extremity swelling, joint pain, joint swelling or joint redness Skin/Breast: Denies: erythema Neuro: Denies: difficulty walking PFSH ED PFSH: Medical History No pertinent past medical history neghx:htn,dm,thyroid,dvt/pe PCP: Tammie Ruano Surgical History History of tonsillectomy (~2008) Hx laparoscopic cholecystectomy (~10/2020) Family History Mother Hyperlipidemia Thyroid disease Diabetes mellitus type 1 Grandmother Hyperlipidemia Hypertension Thyroid disease Grandfather Hypertension Father Hypertension Other Diabetes Denies family history of Colon cancer Ovarian cancer Prostate cancer Heart disease Breast cancer Anesthesia complication Bleeding disorder Uterine cancer Stroke Social History Smoking and tobacco/nicotine status: former use of tobacco/nicotine Physical Exam Const: COMMON NORMALS: no acute distress, average body habitus, no limitations, healthy appearing, alert and well nourished Resp: COMMON NORMALS: normal respiratory effort and clear to auscultation bilaterally AUSCULTATION: clear to auscultation bilaterally Cardio: COMMON NORMALS: regular rate and regular rhythm RATE: regular rate RHYTHM: regular rhythm GI: COMMON NORMALS: Normal to inspection, nondistended, normoactive bowel sounds present, Soft to palpation, No hepatosplenomegaly present and no masses INSPECTION: Yes normal to inspection AUSCULTATION: Yes normoactive bowel sounds PALPATION: Yes Soft to palpation and Yes No hepatosplenomegaly present OTHER: pt has some mild tenderness to L edge of section scar; scar seems to be a healing well; there is no overlying warmth, discharge, redness, or odor : COMMON NORMALS: Yes no CVA tenderness BLADDER/KIDNEY EXAM: Yes no CVA tenderness Back/Pelvis: COMMON NORMALS: no CVA tenderness Neuro: SENSORIUM/ORIENTATION: Yes alert Course Vital Signs: Vital signs: Vital Signs Temperature 98.5 F 08/12/25 21:20 Pulse Rate 96 08/12/25 22:45 Respiratory Rate 16 08/12/25 22:45 Blood Pressure 107/65 08/12/25 22:45 Pulse Oximetry 99 08/12/25 22:45 Oxygen Delivery Me thod Room Air 08/12/25 21:20 MDM - Abdominal Pain Medical Decision Making Patient states she has had pain over the last 6 days or so ever since she was discharged from OB. She clinically appears in no acute distress. Her vital signs are stable. Her scar appears to be healing well. I would not have any concern based on her history and physical exam for intra-abdominal/intrauterine hemorrhage. She is not having much vaginal bleeding. She is not having pain at rest. This mainly seems to be with positional changes. I feel this most likely is normal 6 days postop. I would like her to follow-up with her OB this week. Return to ED precautions discussed. Medical Records I reviewed the patient's medical records. No radiology studies performed this visit Discharge Plan Discharge Patient Disposition: Home Clinical Impression: Pain following delivery Condition: Stable Prescriptions: No Action DHA 200 mg capsule 200 mg PO DAILY oxycodone-acetaminophen [Percocet] 5-325 mg tablet 1 tab PO Q8H PRN (Reason: pain) Qty: 20 0RF Discharge Orders: Discharge ED (Routine); Ordered 08/12/25 Ordered By: Maryanne Combs Referrals: Tammie Payne MD [Primary Care Provider, Family Practice] Patient Instructions: Patient Portal & Danielle Instructions Activity Restrictions/Additional Instructions: As we discussed, I would likely reach out to your OB provider early tomorrow morning to schedule a follow-up appointment for early this week for reevaluation. You need to return to the emergency department for worsening abdominal pain, fevers, lightheadedness/dizziness, or any other concerns you may have. Print Language: Faroese Coding Level of Care Code ED Tool Grinder Set Up Operator Gear for Piyush Salinas
[2025-08-12 22:45] VITALS: BP 107/65; PULSE 96; RESP 16; O2SAT 99
--- NOTE | 2025-08-13 08:35 | DCPLANNER ---
messaged [facility] for er f/u
== END 2025-08-12 22:46 | disposition home or self-care (01) ==
PROVIDERS: Emergency Provider Physician Assistant; PCP Family Medicine
DX: G89.18 Other acute postprocedural pain (principal); Z87.891 Personal history of nicotine dependence
CPT/HCPCS: 99281